=== PATIENT | female | born 1990 | race Caucasian/White ===

== ENCOUNTER 2021-09-09 15:25 | Emergency (ER) | payer BC ==
[2021-09-09 16:34] LABS: HEMOGLOBIN 13.3 gm/dl (12.3-15.3); RED BLOOD COUNT 4.62 M/UL (4.00-5.10); WHITE BLOOD COUNT 10.3 K/UL (4.5-11.0)
[2021-09-09] MEDS ORDERED: ZOFRAN ODT 4 MG4 MG GT (20:53)
[2021-09-09] MEDS ORDERED: CEPHALEXIN500 M1 PO (20:53)
[2021-09-09] MEDS ORDERED: DIFLUCAN150 MG PO (20:56)
== END 2021-09-09 21:05 | disposition home or self-care (01) ==
LOC: ER1 15:25
PROVIDERS: Physician Assistant
DX: N30.01 Acute cystitis with hematuria (principal); K21.9 Gastro-esophageal reflux disease without esophagitis; Z88.0 Allergy status to penicillin; Z20.822 Contact with and (suspected) exposure to COVID-19
CPT/HCPCS: 0240U; 80053; 81001; 83690; 84703; 85025; 87086; 96374; 96375; 99284; J1200; J2405; J2930; Q9967